=== PATIENT | female | born 1955 | race Caucasian/White ===

== ENCOUNTER 2024-05-18 09:22 | Emergency (ER) | payer MEDICARE, OTHER, SELFPAY ==
[2024-05-18 09:26] VITALS: BP 167/84
[2024-05-18 09:43] VITALS: BMI 35.3
[2024-05-18 10:05] VITALS: BP 128/80
--- NOTE | 2024-05-18 10:05 | EDRN ---
Diana ortiz in room w/pt.
--- NOTE | 2024-05-18 10:10 | EDRN ---
Pt attempting urine spec at this time.
[2024-05-18 10:20] LABS: % Basophils 0.9 % (0-2); % Eosinophils 2.5 % (0-6); % Immature Granulocytes 0.2 % (0-0.5); % Lymphocytes 25.4 % (20.5-51.1); % Monocytes 7.4 % (1.7-9.3); % Neutrophils 63.6 % (42.2-75.2); Absolute Basophils 0.1 10^3/uL (0-0.2); Absolute Eosinophils 0.1 10^3/uL (0-0.7); Absolute Lymphocytes 1.5 10^3/uL (1.2-3.4); Absolute Monocytes 0.4 10^3/uL (0.1-0.6); Absolute Neutrophils 3.6 10^3/uL (1.4-6.5); Hematocrit 40.6 % (37.0-47.0); Hemoglobin 14.4 g/dL (12.0-16.0); Mean Corp Hgb Conc. 35.5 g/dL (33.0-37.0); Mean Corpuscular Hgb 30.1 pg (27.0-31.0); Mean Corpuscular Volume 84.8 fL (81.0-99.0); Nucleated Red Blood Cells % 0 %; Platelet Count 209 10^3/uL (130-400); Red Blood Cell Count 4.79 10^6/uL (4.20-5.40); Red Cell Dist. Width 13.1 % (11.5-14.5); White Blood Cell Count 5.7 10^3/uL (4.8-10.8)
[2024-05-18 10:34] LABS: COVID-19 Antigen Negative (Negative)
[2024-05-18 10:41] LABS: ALT (SGPT) 47 U/L (0-35); AST (SGOT) 27 U/L (14-36); Albumin 4.4 g/dl (3.5-5.0); Alkaline Phosphatase 162 U/L (38-126); Blood Urea Nitrogen 16 mg/dl (7-17); Calcium 10.8 mg/dl (8.4-10.2); Carbon Dioxide 22 mmol/L (22-30); Chloride 100 mmol/L (98-107); Estimated Creatinine Clearance 93 ml/min; Glucose 278 mg/dl (70-99); Lipase 136 U/L (23-300); Potassium 4.4 mmol/L (3.5-5.1); Sodium 136 mmol/L (135-145); Total Bilirubin 1.3 mg/dl (0.2-1.3); eGFR > 60.00
[2024-05-18 10:56] LABS: Urine Albumin Negative (Neg - Trace); Urine Bilirubin Negative (Negative); Urine Character Clear (Clear); Urine Color Yellow; Urine Glucose 3+ (Negative); Urine Ketone 1+ (Negative); Urine Leukocyte 2+ (Negative); Urine Nitrite Positive (Negative); Urine Occult Blood Negative (Negative); Urine Specific Gravity 1.015 (<1.030); Urine Urobilinogen Negative (Neg - 1+)
[2024-05-18 11:15] LABS: Troponin I < 0.012 ng/ml
[2024-05-18 11:18] VITALS: BP 150/85
[2024-05-18 12:00] VITALS: BP 142/73
--- NOTE | 2024-05-18 12:27 | EDRN ---
Diana JENNINGS in room w /pt at this time.
[2024-05-18 12:39] LABS: Urine Squamous Cell 16-20 /LPF (Few)
[2024-05-18 12:40] LABS: Urine Bacteria Moderate (Negative); Urine White Cell 30-40 /HPF (0-5)
--- NOTE | 2024-05-18 12:50 | EDRN ---
Pt OOB to BR at this time
[2024-05-18] MEDS: ROCEPHIN 2000 MG IV (12:57)
[2024-05-18] MEDS: MORPHINE SULFATE 4 MG IV (12:57)
[2024-05-18 13:01] VITALS: BP 131/64
--- NOTE | 2024-05-18 13:09 | EDRN ---
Diana Paris PA in room w/ pt at this time
--- NOTE | 2024-05-18 13:26 | ED.GENMED ---
History of Present Illness
General
Chief Complaint: Abdominal Symptoms
Source: patient
Exam Limitations: none
Time Seen by Provider: 05/18/24 09:36
Nursing documentation reviewed up to this point in time: agreed with
History of Present Illness
History of Present Illness:
68-year-old female with past medical history of previous stroke hypertension hyperlipidemia and diabetes presenting to the emergency department with discomfort initially started to her lower abdomen progressed to her back and also with some
discomfort to her back as well she has had some mild urinary symptoms as well as some generalized weakness and fatigue. Symptoms been ongoing for a few days at this point. She had a COVID test that was normal. Denies any specific chest pain
shortness fevers change in bowel movements.
Past History
Past History
ED Past Medical History: HTN and Hypercholesterolemia
Social History
Tobacco: Non-smoker
Personal:
Living: with family
Review of Systems
Review of Systems
Allergies reviewed?: Yes
All Other Systems: ROS reviewed and negative except as documented in HPI and ROS
Phy Exam
Physical Exam
Physical Exam:
GENERAL: Alert , in no apparent distress
EYE: pupils equal and reactive
NECK: Supple, no significant adenopathy.
ENT: o/p clr, mmm.
CARDIAC: Regular rate and rhythm .
LUNGS: Clear breath sounds bilaterally, no acute respiratory distress, no wheezes/rales/rhonchi
ABDOMEN: Soft, without focal tenderness, no r/g, no cvat
NEUROLOGICAL: Alert and oriented, no focal neuro deficits
SKIN: Warm and dry, skin intact.
MUSCULOSKELETAL: No edema, well perfused.
PSYCH: Normal and appropriate interaction.
Course
Orders/Labs/Results
Orders:
Orders
05/18/24 09:41
IV Insert/Care/Rem.- Treatment PRN
05/18/24 09:55
Troponin I Urgent
05/18/24 10:01
COVID-19 Antigen Urgent
Source: Nasal Swab
Complete Blood Count/With Diff Urgent
Comprehensive Metabolic Panel Urgent
Lipase Urgent
05/18/24 10:05
CT Chest/abd/pelvis Angio W/wo Urgent
Comment:
Reason For Exam: chest back lower abd pain
05/18/24 10:09
EKG [Electrocardiogram (*1)] Urgent
Reason for Study: Abdominal Pain
EKG- Treatment ONCE
05/18/24 10:22
Urinalysis Reflex To Culture Urgent
Date Specimen was Collected: 05/18/24
Time Specimen was Collected: 10:18
Urine Microscopic Reflex Cult Urgent
Urine Culture Urgent
SHRUTHI Source: U
Specimen Description:
Date Specimen was Collected: 05/18/24
Time Specimen was Collected: 10:18
05/18/24 12:31
CefTRIAXone [Rocephin] 2,000 mg IV NOW STA
05/18/24 12:35
Morphine Sulfate 4 mg IV NOW STA
Abnormal Lab Results
05/18/24 05/18/24
10:01 10:22
MPV 12.0 H fL
(7.4-10.4)
Glucose 278 H mg/dl
(70-99)
Calcium 10.8 H mg/dl
(8.4-10.2)
ALT 47 H U/L
(0-35)
Alkaline Phosphatase 162 H U/L
(38-126)
Urine Ketones 1+ A
(Negative)
Urine Nitrite (Reflex) Positive A
(Negative)
Leukocyte Esterase Rfl 2+ A
(Negative)
Urine RBC 7-10 A /HPF
(0-2)
Urine WBC (Reflex) 30-40 A /HPF
(0-5)
Urine Bacteria (Reflex) Moderate A
(Negative)
Urine Glucose 3+ A
(Negative)
05/18/24 10:01
05/18/24 10:01
Vital Signs
Initial and Last Documented VS:
Initial Vital Signs
Temp Pulse Resp BP Pulse Ox
97.7 F 78 16 167/84 100
05/18/24 09:26 05/18/24 09:26 05/18/24 09:26 05/18/24 09:26 05/18/24 09:26
Last Documented Vital Signs
Temp Pulse Resp BP Pulse Ox
97.7 F 69 15 131/64 100
05/18/24 09:26 05/18/24 13:01 05/18/24 13:01 05/18/24 13:01 05/18/24 13:01
MDM/Problems Addressed
MDM/Problems Addressed:
68-year-old female presenting to the emergency department today with concerns of discomfort to the lower abdomen and flank has had some intermittent discomforts over the past few days but at this point mainly is abdominal and back pain. Has had
some mild urinary symptoms also some generalized weakness fatigue. Upon arrival blood pressure was elevated but this improved without specific treatment. Labs were obtained without significant white count did have an elevated glucose level does
have a history of insulin-dependent diabetes urinalysis appears consistent with urinary tract infection. CT scan showing findings consistent with urinary tract infection. Additionally did show findings of stones in the kidney with some signs of
inflammation. The case was discussed with urology due to this finding that felt it was still safe for outpatient manage if otherwise patient appeared well and was nontoxic. She was darted on IV antibiotics and was asymptomatic at time of
discharge. She was written for further antibiotics for 10 days and given strict return precautions.
*Critical Care Note
Total Time (30-74mins, 75-104mins- exclusive of procedures): Not Applicable
ED Attending Note
-
Portions of this chart may have been created with voice recognition software.� Occasional wrong word or��sound alike� substitutions may have occurred due to the inherent limitations of voice recognition software.
Discharge Plan
Departure
Patient Disposition: Home (Routine Discharge)
Date of Disposition: 05/18/24
Time of Disposition: 13:26
Patient with high blood pressure during this ER visit?: No
Condition: Good
Covid-19: Not Applicable
Discharge Problem:
Urinary tract infection, Hyperglycemia
Instructions: Urinary Tract Infection, Adult ED
Prescriptions:
New
cefdinir 300 mg capsule
300 mg PO BID 10 Days Qty: 20 0RF
oxycodone 5 mg capsule
5 mg PO Q6H PRN (Reason: Pain) Qty: 5 0RF
No Action
losartan 50 MG tablet
50 mg PO HS
aspirin 81 MG tablet,delayed release (DR/EC)
81 mg PO DAILY
lidocaine 1 PATCH adhesive patch,medicated
1 patch topical DAILYPRN PRN (Reason: to thighs or shins neuropathy)
ergocalciferol (vitamin D2) 50,000 UNITS capsule
50,000 units PO MO
alpha lipoic acid 100 MG capsule
100 mg PO DAILY
levomefolate--vitamins B12-B6 1 TAB tablet
1 tab PO DAILY
Patient Comments:
11/24/21 will bring in to verify
atorvastatin 40 MG tablet
40 mg PO QPM 30 Days Qty: 30 0RF
clopidogrel 75 MG tablet
75 mg PO DAILY 30 Days Qty: 30 2RF
insulin aspart U-100 [Novolog FlexPen U-100 Insulin] 300 UNITS/3 ML insulin pen
6 units SC AC 30 Days Qty: 1 0RF
insulin glargine [Lantus Solostar U-100 Insulin] 300 UNITS/3 ML insulin pen
16 units SC HS 30 Days Qty: 1 3RF
Referrals:
Nate Baca DO [Family Provider] -
Allen Acevedo MD [Active] - Follow up in 5-7 days
Activity Restrictions/Additional Instructions:
You came to the emergency department today with concerns of discomfort to the abdomen and back. Here you were found to have a urinary tract infection and possible pyelonephritis. You were started on ceftriaxone. Please take cefdinir twice daily
over the next 10 days. Please follow-up closely as an outpatient. Return to the emergency department for any worsening, new or concerning symptoms. Additionally it is very important to control your sugar tightly at home.
Interventions
Interventions:
*Risk Screen - Suicide Last Done: 05/18/24 09:43
*General Assessment Last Done: 05/18/24 09:43
*Neglect/Abuse Screening Last Done: 05/18/24 09:43
ED- Fall Risk Assessment Last Done: 05/18/24 09:43
*ED COVID-19 Vaccine History Last Done: 05/18/24 09:43
*Nursing Disposition Last Done: 05/18/24 13:40
AX-Rqjjjn-Ctyuilbugv Assessment Last Done: 05/18/24 10:10
Discharge Date and Time
Discharge Date/Time: 05/18/24 13:42
Print Language: SINHALA
== END 2024-05-18 13:42 | disposition home or self-care (01) ==
LOC: EMR 09:22
PROVIDERS: Physician Assistant; EMERGENCY PHYSICIAN Emergency Medicine; FAMILY PHYSICIAN Family Medicine
DX: N39.0 Urinary tract infection, site not specified (principal); E11.65 Type 2 diabetes mellitus with hyperglycemia; R53.1 Weakness; N20.0 Calculus of kidney; M54.2 Cervicalgia; M54.9 Dorsalgia, unspecified; E78.00 Pure hypercholesterolemia, unspecified; I10 Essential (primary) hypertension; Z86.73 Personal history of transient ischemic attack (TIA), and cerebral infarction without residual deficits
CPT/HCPCS: 99285; 96374; 96375; 71275; 74174; 80053; 81003; 81015; 83690; 84484; 85025; 87077; 87086; 87186; 87811; 93005; Q9967

== ENCOUNTER 2024-05-19 16:29 | Emergency (ER) | payer MEDICARE, OTHER, SELFPAY ==
[2024-05-19 16:34] VITALS: BP 135/74
[2024-05-19 17:09] LABS: % Basophils 0.6 % (0-2); % Immature Granulocytes 0.3 % (0-0.5); % Lymphocytes 22.6 % (20.5-51.1); % Monocytes 8.1 % (1.7-9.3); % Neutrophils 65.4 % (42.2-75.2); Absolute Eosinophils 0.2 10^3/uL (0-0.7); Absolute Lymphocytes 1.6 10^3/uL (1.2-3.4); Absolute Monocytes 0.6 10^3/uL (0.1-0.6); Absolute Neutrophils 4.5 10^3/uL (1.4-6.5); Hematocrit 37.3 % (37.0-47.0); Hemoglobin 13.2 g/dL (12.0-16.0); Mean Corp Hgb Conc. 35.4 g/dL (33.0-37.0); Mean Corpuscular Hgb 29.3 pg (27.0-31.0); Mean Corpuscular Volume 82.9 fL (81.0-99.0); Mean Platelet Volume 11.4 fL (7.4-10.4); Nucleated Red Blood Cells % 0 %; Platelet Count 241 10^3/uL (130-400); Red Cell Dist. Width 13.3 % (11.5-14.5); White Blood Cell Count 6.9 10^3/uL (4.8-10.8)
[2024-05-19 17:21] LABS: ALT (SGPT) 40 U/L (0-35); AST (SGOT) 31 U/L (14-36); Albumin 4.2 g/dl (3.5-5.0); Alkaline Phosphatase 129 U/L (38-126); Blood Urea Nitrogen 18 mg/dl (7-17); Calcium 9.8 mg/dl (8.4-10.2); Carbon Dioxide 20 mmol/L (22-30); Chloride 102 mmol/L (98-107); Glucose 169 mg/dl (70-99); Potassium 4.1 mmol/L (3.5-5.1); Sodium 138 mmol/L (135-145); eGFR > 60.00
[2024-05-19 17:24] LABS: Urine Albumin Trace (Neg - Trace); Urine Bilirubin Negative (Negative); Urine Character Clear (Clear); Urine Color Yellow; Urine Glucose Negative (Negative); Urine Ketone 2+ (Negative); Urine Leukocyte 2+ (Negative); Urine Nitrite Negative (Negative); Urine Occult Blood Trace (Negative); Urine Specific Gravity 1.025 (<1.030); Urine Urobilinogen Negative (Neg - 1+)
[2024-05-19 17:32] LABS: Urine Mucus Few
[2024-05-19 17:33] LABS: Urine Bacteria Many (Negative); Urine Red Blood Cell 0-2 /HPF (0-2); Urine White Cell 26-30 /HPF (0-5)
[2024-05-19 18:46] VITALS: BMI 35.1
[2024-05-19 19:00] VITALS: BP 139/86
--- NOTE | 2024-05-19 19:35 | ED.GENMED ---
History of Present Illness
General
Chief Complaint: Urinary Symptoms
Source: patient
Exam Limitations: none
Time Seen by Provider: 05/19/24 18:50
History of Present Illness
History of Present Illness:
This is a 68 year old female that comes in with c/o back pain and urinary tract infection. States that she was here yesterday with abd pain in the lower abd. States that this also went into her back and up to the top of her back States that she
wasn't sleeping. States that this started on Saturday. States that she thought it was COVID and tested at home and they tested her here yesterday and this was negative. States that they did an abd CT scan yesterday. States that she was given
Rocephin and Morphine and she left here a happy camper. States that she was also given oral antibiotics for home and she took one last night. States that she also was told to take Tylenol and Ibuprofen for pin. States that she was given Oxycodone
5mg. States that last night she took Advil and this did not help. States that she took a shower and she has decreased appetite. States that at 3am she took the Oxycodone. Then a few hours later she has nausea and vomiting. This Am she felt a little
better and she put a lidocaine patch on her back. States that she continues with lower back pain and she didn't want to go through another night like last night. Denies any fever, chills, chest pain, SOB, abd pain, diarrhea, headache, dizziness,
urinary burning.
Past History
Past History
ED Past Medical History: CVA (NO residual), HTN, Hypercholesterolemia and IDDM
ED Past Surgical History: , Tonsilectomy and Other (Hernia repair)
Social History
Tobacco: Non-smoker
Alcohol: None
Personal:
Living: with family
Review of Systems
Review of Systems
All Other Systems: ROS reviewed and negative except as documented in HPI and ROS
Constitutional: Reports no symptoms; Denies fever or chills
EENT: Reports no symptoms
Respiratory: Reports no symptoms; Denies cough or trouble breathing
Cardiac: Reports no symptoms; Denies chest pain
ABD/GI: Reports abdominal pain (Lower abd pain), nausea and vomiting; Denies diarrhea
Musculoskeletal: Reports no symptoms
Skin: Reports no symptoms
Neurological: Reports no symptoms; Denies dizzy or headache
Psychiatric: Reports no symptoms
Phy Exam
General Physical Exam
General Presentation: no apparent distress
General age: appears stated age
General Skin: warm and dry
General Habitus: elderly
General Mental: alert
General Hydration: appears well hydrated
ENT Exam
ENT Exam: TM's normal, pharynx normal and neck supple
Eye Exam
Eye Exam: EOMI
Cardiovascular Exam
Cardiovascular Exam: regular rate/rhythm, no edema, no murmur and normal peripheral pulses
Pulmonary Exam
Pulmonary Exam: lungs clear, no respiratory distress, no rales, chest non tender, no crackles, no rhonchi, no wheezing and no cough
Gastrointestinal Exam
Gastrointestinal Exam: normal bowel sounds, soft, no organomegaly, no pulsatile mass, non distended and tender (Slight lower abd tenderness over bladder with palpation)
Musculoskeletal Exam
Musculoskeletal Exam: full ROM, no edema and other (Negative for any spinal tenderness or lateral tenderness to the spine with palpation)
Skin Exam
Skin Exam: normal color, warm/dry, no rash and no petechia
Psychiatric Exam
Psychiatric Exam: normal mood/affect
Course
Orders/Labs/Results
Orders:
Orders
05/19/24 16:58
Complete Blood Count/With Diff Urgent
Comprehensive Metabolic Panel Urgent
Urinalysis Reflex To Culture Urgent
Date Specimen was Collected: 05/19/24
Time Specimen was Collected: 16:39
Urine Microscopic Reflex Cult Urgent
Urine Culture Urgent
SHRUTHI Source: U
Specimen Description:
Date Specimen was Collected: 05/19/24
Time Specimen was Collected: 16:39
05/19/24 19:34
0.9% Sodium Chloride 1000 ml [Nss] 1,000 ml IV BOLUS
Ketorolac [Toradol] 30 mg IV NOW STA
Phenazopyridine HCl [Pyridium] 200 mg PO NOW STA
05/19/24 19:48
Acetaminophen [Tylenol] 1,000 mg PO NOW STA
Abnormal Lab Results
05/19/24
16:58
MPV 11.4 H fL
(7.4-10.4)
Carbon Dioxide 20 L mmol/L
(22-30)
BUN 18 H mg/dl
(7-17)
Glucose 169 H mg/dl
(70-99)
ALT 40 H U/L
(0-35)
Alkaline Phosphatase 129 H U/L
(38-126)
Urine Ketones 2+ A
(Negative)
Ur Occult Blood Reflex Trace A
(Negative)
Leukocyte Esterase Rfl 2+ A
(Negative)
Urine WBC (Reflex) 26-30 A /HPF
(0-5)
Urine Bacteria (Reflex) Many A
(Negative)
05/19/24 16:58
05/19/24 16:58
Very slight Dehydration. Glucose nonfasting. ALT mildly elevated. Alk phos slightly elevated. Urine positive for infection.
Vital Signs
Initial and Last Documented VS:
Initial Vital Signs
Temp Pulse Resp BP Pulse Ox
98 F 75 20 135/74 100
05/19/24 16:34 05/19/24 16:34 05/19/24 16:34 05/19/24 16:34 05/19/24 16:34
Last Documented Vital Signs
Temp Pulse Resp BP Pulse Ox
98 F 66 15 152/81 100
05/19/24 16:34 05/19/24 20:15 05/19/24 20:15 05/19/24 20:00 05/19/24 20:15
MDM/Problems Addressed
Differential Diagnosis Includes:
Pyelonephritis. UTI, Low back pain
MDM/Problems Addressed:
This is a 68 year old female that comes in with c/o low back pain and slight abd pain. Patient was seen her yesterday and diagnosed with a UTI. Patient was given IV Rocephen 2000mg and sent home on Cefdinir 300mg BID. Patient was also told to use
Advil and Tylenol and was given Oxycodone for more sever pain. Patient returns tonight with low back pain.
Will check labs. Urine and give IV fluids and medicate for pain.
Back into see patient. Patient states that she is feeling better and ready to go home. Explained to patient that she has a normal WBC count and that she does have a UTI. HEr low back pain may have been from Spasming. She was given Pyridium here and
will also give her a prescription for home. Patient can use Tylenol 1000mg as needed for pain. Follow up with the family doctor. Increase her water intake. Return with any concerns.
Chronic conditions affecting care: DM
Acute Exacerbation and/or Progression of Chronic Illness:
UTI
*Pulse Oximetry
Patient hypoxic: no
*EKG
Interpreted by ED Provider?: NA
Rate: EKG- N/A
*Truck Dock Material Mover Interpretation
Rate: normal
Heart Rate: 71
*Critical Care Note
Total Time (30-74mins, 75-104mins- exclusive of procedures): Not Applicable
ED Attending Note
-
Portions of this chart may have been created with voice recognition software.� Occasional wrong word or��sound alike� substitutions may have occurred due to the inherent limitations of voice recognition software.
Discharge Plan
Departure
Patient Disposition: Home (Routine Discharge)
Date of Disposition: 05/19/24
Time of Disposition: 21:17
Patient with high blood pressure during this ER visit?: Yes
Condition: Good
Covid-19: Not Applicable
Discharge Problem:
Acute UTI (urinary tract infection), Low back pain
Instructions: Low Back Pain (DC), Urinary Tract Infection, Adult (DC), BLOOD PRESSURE
Prescriptions:
New
phenazopyridine [Pyridium] 100 mg tablet
100 mg PO TID PRN (Reason: Urinary issues) Qty: 3 0RF
No Action
losartan 50 MG tablet
50 mg PO HS
aspirin 81 MG tablet,delayed release (DR/EC)
81 mg PO DAILY
lidocaine 1 PATCH adhesive patch,medicated
1 patch topical DAILYPRN PRN (Reason: to thighs or shins neuropathy)
ergocalciferol (vitamin D2) 50,000 UNITS capsule
50,000 units PO MO
alpha lipoic acid 100 MG capsule
100 mg PO DAILY
levomefolate--vitamins B12-B6 1 TAB tablet
1 tab PO DAILY
Patient Comments:
11/24/21 will bring in to verify
atorvastatin 40 MG tablet
40 mg PO QPM 30 Days Qty: 30 0RF
clopidogrel 75 MG tablet
75 mg PO DAILY 30 Days Qty: 30 2RF
insulin aspart U-100 [Novolog FlexPen U-100 Insulin] 300 UNITS/3 ML insulin pen
6 units SC AC 30 Days Qty: 1 0RF
insulin glargine [Lantus Solostar U-100 Insulin] 300 UNITS/3 ML insulin pen
16 units SC HS 30 Days Qty: 1 3RF
cefdinir 300 mg capsule
300 mg PO BID 10 Days Qty: 20 0RF
oxycodone 5 mg capsule
5 mg PO Q6H PRN (Reason: Pain) Qty: 5 0RF
Referrals:
Nate Baca DO [Family Provider] - Follow up in 2-3 days
Activity Restrictions/Additional Instructions:
As discussed, your blood work shows slight Dehydration. Please increase your water intake to 8-8oz glasses daily. You urine shows that you have a UTI. Continue with the antibiotics that you have been given. You have had a prescription for Pyridium
sent to your Pharmacy. This will turn your urine orange but will decrease the spasm of the bladder that may be causing your low back pain. You may take Tylenol 1000mg every 6 hours for pain. Follow up with the family doctor for recheck. IF YOU HAVE
FEVER, INCREASED OR CHANGING PAIN, OR YOU HAVE ANY OTHER CONCERNS PLEASE RETURN TO THE EMERGENCY ROOM.
Interventions
Interventions:
*Risk Screen - Suicide Last Done: 05/19/24 16:34
*General Assessment Last Done: 05/19/24 16:34
*Neglect/Abuse Screening Last Done: 05/19/24 16:34
ED- Fall Risk Assessment Last Done: 05/19/24 18:46
ED-Female Genitourinary Assessment Last Done: 05/19/24 18:46
Discharge Date and Time
Print Language: [place]
[2024-05-19] MEDS: NSS 1000 IV (19:48)
[2024-05-19] MEDS: TORADOL 30 MG IV (19:48)
[2024-05-19] MEDS: Pyridium 200 MG PO (19:48)
[2024-05-19 20:00] VITALS: BP 152/81
[2024-05-19 21:27] VITALS: BP 162/81
[2024-05-19 21:35] VITALS: BP 162/81
== END 2024-05-19 21:35 | disposition home or self-care (01) ==
LOC: EMR 16:29
PROVIDERS: Emergency Medicine; EMERGENCY PHYSICIAN Student in an Organized Health Care Education/Training Program; FAMILY PHYSICIAN Family Medicine
DX: N39.0 Urinary tract infection, site not specified (principal); M54.50 Low back pain, unspecified; R11.2 Nausea with vomiting, unspecified; E11.9 Type 2 diabetes mellitus without complications; I10 Essential (primary) hypertension; E78.00 Pure hypercholesterolemia, unspecified; Z86.73 Personal history of transient ischemic attack (TIA), and cerebral infarction without residual deficits
CPT/HCPCS: 99284; 96374; 96361; 80053; 81003; 81015; 85025; 87086

== ENCOUNTER 2024-05-20 17:04 | Inpatient (IN) | payer MEDICARE, OTHER, SELFPAY ==
[2024-05-20] VITALS (10 sets, daily range): BP systolic 136–175; BP diastolic 71–110; BMI 34.3
[2024-05-20 11:44] LABS: Urine Albumin Negative (Neg - Trace); Urine Bilirubin Negative (Negative); Urine Character Clear (Clear); Urine Color Yellow; Urine Glucose Trace (Negative); Urine Ketone 1+ (Negative); Urine Leukocyte 2+ (Negative); Urine Nitrite Positive (Negative); Urine Occult Blood Negative (Negative); Urine Urobilinogen Negative (Neg - 1+)
[2024-05-20 11:58] LABS: Urine Squamous Cell 21-25 /LPF (Few)
[2024-05-20 11:59] LABS: Urine Bacteria Few (Negative); Urine Red Blood Cell 0-2 /HPF (0-2); Urine White Cell 30-40 /HPF (0-5)
--- NOTE | 2024-05-20 12:00 | ED.GENMED ---
History of Present Illness
General
Chief Complaint: Urinary Symptoms
Source: patient
Exam Limitations: none
Time Seen by Provider: 05/20/24 11:42
Nursing documentation reviewed up to this point in time: agreed with
History of Present Illness
History of Present Illness:
68 y/o F with h/o HTN, HLD, IDDM, stroke
here for 3rd visit in 3 days
lower abd pain to back
came in on 05/[address] c/a/p showing cystitis and an infrarenal kidney stone, no hydro, positive urine e coli hancock sensitive
given rocephin and d/c on cefdinir
has been taking cefdinir, but returned eysterday with persistent pain in the lower abd
she tried a dose of oxycodone and it made her vomit so she stopped taking that, but tylenol not helping
she was afebrile, nontoxic and her w/u showed normal wbc
she was given pyridium for suspected bladder spasm pain and d/c alysha
pt returns saying she cannot eat anything because she has noappetite and the pain is keeping her up
she has not had any fever, chlils, vomiting, diarrhea
she has back pain as well
Past History
Past History
ED Past Medical History: CVA (NO residual), HTN, Hypercholesterolemia and IDDM
ED Past Surgical History: , Tonsilectomy and Other (Hernia repair)
Social History
Tobacco: Non-smoker
Alcohol: None
Personal:
Living: with family
Review of Systems
Review of Systems
Allergies reviewed?: Yes
All Other Systems: Not applicable
Phy Exam
Physical Exam
Physical Exam:
GENERAL: Alert , in no apparent distress
EYE: pupils equal and reactive
NECK: Supple
ENT: o/p clr, mmm.
CARDIAC: Regular rate and rhythm .
LUNGS: Clear breath sounds bilaterally, no acute respiratory distress, no wheezes/rales/rhonchi
ABDOMEN: Soft, mild lower abd tenderness, no r/g, no cvat, normal bowel sounds
NEUROLOGICAL: Alert and oriented, no focal neuro deficits
SKIN: Warm and dry, skin intact.
MUSCULOSKELETAL: No edema, well perfused. neg akash's sign
PSYCH: Normal and appropriate interaction.
Course
Orders/Labs/Results
Orders:
Orders
05/20/24 11:17
Urinalysis Reflex To Culture Urgent
Date Specimen was Collected: 05/20/24
Time Specimen was Collected: 11:11
Urine Microscopic Reflex Cult Urgent
Urine Culture Urgent
SHRUTHI Source: U
Specimen Description:
Date Specimen was Collected: 05/20/24
Time Specimen was Collected: 11:11
05/20/24 12:31
0.9% Sodium Chloride 1000 ml [Nss] 1,000 ml IV BOLUS
HYDROmorphone [Dilaudid] 0.5 mg IV NOW STA
Ondansetron Injectable [Zofran] 4 mg IV NOW STA
05/20/24 12:44
CT Abd/pel Without Iv Or Oral Urgent
Comment:
Reason For Exam: lower abd pain, uti, h/o kidney stone
05/20/24 12:45
Complete Blood Count/With Diff Urgent
Comprehensive Metabolic Panel Urgent
Lipase Urgent
05/20/24 15:05
Piperacillin/Tazo 3.375 Gram [Zosyn] 3.375 gram in 50 ml IV NOW
05/20/24 15:18
HYDROmorphone [Dilaudid] 0.5 mg IV NOW STA
Ondansetron Injectable [Zofran] 4 mg IV NOW STA
Abnormal Lab Results
05/20/24 05/20/24
11:17 12:45
MPV 11.4 H fL
(7.4-10.4)
Absolute Monos (auto) 0.7 H 10^3/uL
(0.1-0.6)
Lymphocytes % 18.8 L %
(20.5-51.1)
Monocytes % 9.9 H %
(1.7-9.3)
BUN 21 H mg/dl
(7-17)
Glucose 204 H mg/dl
(70-99)
ALT 36 H U/L
(0-35)
Urine Ketones 1+ A
(Negative)
Urine Nitrite (Reflex) Positive A
(Negative)
Leukocyte Esterase Rfl 2+ A
(Negative)
Urine WBC (Reflex) 30-40 A /HPF
(0-5)
Urine Bacteria (Reflex) Few A
(Negative)
Urine Glucose Trace A
(Negative)
05/20/24 12:45
05/20/24 12:45
Vital Signs
Initial and Last Documented VS:
Initial Vital Signs
Temp Pulse Resp BP Pulse Ox
98.1 F 71 18 174/94 100
05/20/24 11:08 05/20/24 11:08 05/20/24 11:08 05/20/24 11:08 05/20/24 11:08
Last Documented Vital Signs
Temp Pulse Resp BP Pulse Ox
98.1 F 66 19 175/85 100
05/20/24 11:08 05/20/24 14:00 05/20/24 14:00 05/20/24 14:00 05/20/24 11:08
MDM/Problems Addressed
Differential Diagnosis Includes:
pyelo, kidney stone
MDM/Problems Addressed:
ROOM 3 is candi huddleston 68 y/o F with htn, hld, IDDM, cva
3rd visit in 3 days for lower abd pain and back pain, nauesa, dec appetite, occ vomiting
on 05/[address] C/A/P showing infrarenal stone, no hydro and cystitis; possible early pyelo
urine e coli hancock sensitive; given rocephin and d/c on cefdinir
came back yesterday 05/19 for pain lower abd, doesn't tolerate pain meds (oxy made her vomit and tylenol not helping), fatigue, not eating; w/u unremarkable, wbc normal sent home with pyridium
still having sypmtoms o fpain and not eating, feels weak, back pain
i am rescanning to be sure the kidney stone isn' tmoving; and advancing abx to zosyn
wbc and cr normal
*Critical Care Note
Total Time (30-74mins, 75-104mins- exclusive of procedures): Not Applicable
ED Attending Note
-
Portions of this chart may have been created with voice recognition software.� Occasional wrong word or��sound alike� substitutions may have occurred due to the inherent limitations of voice recognition software.
Discharge Plan
Departure
Patient Disposition: Admit
Date of Disposition: 05/20/24
Time of Disposition: 15:19
Admit to: Med/Surg
Presentation/result/management discussed w/ accepting MD/DO: Hospitalist
Condition: Fair
Covid-19: Not Applicable
Discharge Problem:
Pyelonephritis
Prescriptions:
No Action
losartan 50 MG tablet
50 mg PO HS
ergocalciferol (vitamin D2) 50,000 UNITS capsule
50,000 units PO SA
acetaminophen [Tylenol Extra Strength] 500 mg Tablet
1,000 mg PO Q6HPRN PRN (Reason: mild pain)
calcium carbonate [Tums] 200 mg calcium (500 mg) Tablet,Chewable
400 mg PO BIDPRN PRN (Reason: GI issues)
insulin glargine [Basaglar KwikPen U-100 Insulin] 100 unit/mL (3 mL) Insulin Pen
15 unit SC HS
atorvastatin 40 MG tablet
40 mg PO HS
clopidogrel 75 MG tablet
75 mg PO HS
insulin aspart U-100 [Novolog FlexPen U-100 Insulin] 300 UNITS/3 ML insulin pen
8 units SC DAILY
Referrals:
Nate Baca DO [Family Provider] -
Interventions
Interventions:
*Risk Screen - Suicide Last Done: 05/20/24 11:42
*General Assessment Last Done: 05/20/24 11:42
*Neglect/Abuse Screening Last Done: 05/20/24 11:42
ED- Fall Risk Assessment Last Done: 05/20/24 11:44
*ED COVID-19 Vaccine History Last Done: 05/20/24 11:42
ED-Female Genitourinary Assessment Last Done: 05/20/24 11:44
Discharge Date and Time
Print Language: [id number]
[2024-05-20] MEDS: ZOFRAN 4 MG IV ×3 (12:55→21:29)
[2024-05-20] MEDS: NSS 1000 IV ×2 (12:55→20:19)
[2024-05-20] MEDS: DILAUDID 0.5 MG IV ×3 (12:56→21:29)
[2024-05-20 13:23] LABS: % Basophils 0.7 % (0-2); % Eosinophils 1.3 % (0-6); % Immature Granulocytes 0.1 % (0-0.5); % Lymphocytes 18.8 % (20.5-51.1); % Monocytes 9.9 % (1.7-9.3); % Neutrophils 69.2 % (42.2-75.2); Absolute Basophils 0.1 10^3/uL (0-0.2); Absolute Eosinophils 0.1 10^3/uL (0-0.7); Absolute Lymphocytes 1.4 10^3/uL (1.2-3.4); Absolute Monocytes 0.7 10^3/uL (0.1-0.6); Hematocrit 39.2 % (37.0-47.0); Hemoglobin 13.7 g/dL (12.0-16.0); Mean Corp Hgb Conc. 34.9 g/dL (33.0-37.0); Mean Corpuscular Hgb 29.8 pg (27.0-31.0); Mean Corpuscular Volume 85.4 fL (81.0-99.0); Mean Platelet Volume 11.4 fL (7.4-10.4); Nucleated Red Blood Cells % 0 %; Platelet Count 245 10^3/uL (130-400); Red Blood Cell Count 4.59 10^6/uL (4.20-5.40); Red Cell Dist. Width 13.2 % (11.5-14.5); White Blood Cell Count 7.2 10^3/uL (4.8-10.8)
[2024-05-20 13:47] LABS: ALT (SGPT) 36 U/L (0-35); AST (SGOT) 27 U/L (14-36); Albumin 4.2 g/dl (3.5-5.0); Alkaline Phosphatase 121 U/L (38-126); Blood Urea Nitrogen 21 mg/dl (7-17); Calcium 10.2 mg/dl (8.4-10.2); Carbon Dioxide 22 mmol/L (22-30); Chloride 100 mmol/L (98-107); Estimated Creatinine Clearance 64 ml/min; Glucose 204 mg/dl (70-99); Lipase 108 U/L (23-300); Potassium 4.4 mmol/L (3.5-5.1); Sodium 135 mmol/L (135-145); Total Bilirubin 1.2 mg/dl (0.2-1.3); Total Protein 6.7 g/dl (6.3-8.2); eGFR > 60.00
[2024-05-20] MEDS: ZOSYN 50 IV (15:11)
--- NOTE | 2024-05-20 16:54 | HPS.HSE ---
Family Physician
-
Family Physician: Nate Baca
Chief Complaint
-
Nausea vomiting, abdominal and lower back pain.
History of Present Illness
Patient is a 68-year-old female with diabetes who presented to emergency room on 05/18 with complaints of lower abdominal pain, back pain, generalized fatigue and at that time was found to have urinary tract infection. Her subsequent urine culture
showed sensitive E. coli. Imaging with CT scan showed nonobstructive urinary calculi without evidence of hydronephrosis or urologic tract abnormalities other than suggestion of cystitis. Patient was given single dose of ceftriaxone and sent home
with cefdinir. Patient remains with persistent symptoms mostly generalized fatigue nausea and severe lower abdominal and back pain. She visited emergency room on 05/19. At that time her assessment was unremarkable with no indication of worsening
of infection. She was suggested to continue antibiotics at home with addition of Pyridium. Today given persistent symptoms she presented to the emergency room again complaining of persistent nausea, low oral intake, persistent lower back and lower
abdomen pain.
Medical History
Past Medical History
Past Medical History: Reports CVA, HTN and IDDM (With peripheral neuropathy)
Past Surgical History: Reports None
Social History
Tobacco: Non-smoker
Alcohol: None
Drug: None
Personal:
Living: With Family
Family History
Family History: Not pertinent
Allergies / Home Medications
Allergies reflects when Allergies were last updated in [employer]
Home Medications with original date entered in [employer]
Allergy/Medication List:
Allergies
Allergy/AdvReac Type Severity Reaction Status Date / Time
No Known Allergies Allergy Verified 05/20/24 11:07
Home Medications
ergocalciferol (vitamin D2) 1,250 mcg (50,000 unit) capsule 50,000 units PO SA Supplement 11/24/21
losartan 50 mg tablet 50 mg PO HS Heart disease/condition 11/24/21
acetaminophen 500 mg tablet (Tylenol Extra Strength) 1,000 mg PO Q6HPRN PRN mild pain 05/20/24
atorvastatin 40 mg tablet 40 mg PO HS 05/20/24
calcium carbonate (Tums) 400 mg PO BIDPRN PRN GI issues 05/20/24
clopidogrel 75 mg tablet 75 mg PO HS 05/20/24
insulin aspart U-100 100 unit/mL (3 mL) subcutaneous pen (Novolog FlexPen U-100 Insulin aspart) 8 units SC DAILY 05/20/24
insulin glargine 100 unit/mL (3 mL) subcutaneous pen (Basaglar KwikPen U-100 Insulin) 15 unit SC HS 05/20/24
Review of Systems
-
A 12 point ROS was completed and negative except as noted: Yes
Abdomen/GI: Reports No Symptoms
: Reports See HPI
Physical Exam
Vital Signs
Vital Signs
Temp Pulse Resp BP Pulse Ox
98.1 F 63 10 167/94 100
05/20/24 11:08 05/20/24 15:45 05/20/24 15:45 05/20/24 15:00 05/20/24 11:08
Physical Exam
General: Well Developed, Well Nourished and No Apparent Distress
HEENT: NormoCephalic, Moist mucous membranes and Atraumatic
Respiratory: Clear
Cardiac: S1/S2 and Regular Rhythm; No Murmur or Rub
GI: Soft, Non Tender, Non Distended and Normal Bowel Sounds; No Organomegaly
Rectal: Deferred by Provider
Musculoskeletal: No Clubbing, No Cyanosis and No Edema
Skin: No Rash
Neuro: Nonfocal/grossly intact
Laboratory Results
-
05/20/24 12:45
05/20/24 12:45
Laboratory Results
Total Bilirubin 1.2 mg/dl (0.2-1.3) 05/20/24 12:45
AST 27 U/L (14-36) 05/20/24 12:45
ALT 36 U/L (0-35) H 05/20/24 12:45
Alkaline Phosphatase 121 U/L (38-126) 05/20/24 12:45
Lipase 108 U/L (23-300) 05/20/24 12:45
Impression/Plan
-
IMPRESSION:
Complicated UTI.
Persistent dysuria with lower abdominal and back pain.
Nephrolithiasis
Conditions prior to admission
Essential hypertension
IDDM
Dyslipidemia.
Peripheral neuropathy.
Ischemic CVA 2021.
Obesity with BMI of 34
PLAN:
Complicated UTI with persistent dysuria including lower abdominal and back pain.
Afebrile and hemodynamically stable with no evidence of systemic infection
Normal white count
Urine culture from 05/18 with sensitive E. coli.
Repeated CT scan of the abdomen and pelvis today
1. As compared with 2 days prior, there is slight decrease of the gas within the urinary bladder and left renal collecting system. These findings are most likely related to urinary tract infections process as previously described. There is
unchanged bilateral nephrolithiasis, greater burden of calculi on the left. No hydronephrosis.
2. Hepatic fatty infiltration.
3. Diverticulosis without diverticulitis.
At this point main issue is persistent nausea, low oral intake, and persistent lower abdominal pain.
Transition back to IV antibiotics: Status post single dose of Zosyn. Will continue with ceftriaxone as cultures were sensitive.
Continue IV hydration
Continue antiemetics and analgesic regimen with Tylenol and IV hydromorphone for severe pain.
Insulin requiring diabetes.
Patient reports hyperglycemia over the last few days likely secondary to UTI.
Check hemoglobin A1c.
Continue preadmission dose of Lantus/aspart
Basal bolus protocol.
Carbohydrate controlled diet.
History of CVA.
Continue clopidogrel and statin
Essential hypertension
Monitor blood pressure on losartan
Full code
DVT prophylaxis Lovenox
[2024-05-20] MEDS: LOVENOX 40 MG SC (20:17)
[2024-05-20] MEDS: COZAAR 50 MG PO (20:19)
[2024-05-20] MEDS: TYLENOL 1000 MG PO (20:19)
[2024-05-20] MEDS: PLAVIX 75 MG PO (20:19)
[2024-05-20] MEDS: LIPITOR 40 MG PO (20:19)
[2024-05-20] MEDS: ROCEPHIN 1000 MG IV (21:29)
[2024-05-20] MEDS: STERILE WATER FOR INJECTION 10 ML IV (21:29)
[2024-05-20 22:20] LABS: Glucose - Point of Care 194 mg/dl (70-99)
[2024-05-20] MEDS: LANTUS 0.15 UNITS SC (22:20)
[2024-05-21] MEDS: MELATONIN 5 MG PO (00:36)
[2024-05-21] MEDS: DILAUDID 0.5 MG IV ×6 (01:32→23:27)
[2024-05-21] MEDS: NSS 1000 IV ×2 (06:19→16:10)
[2024-05-21 06:37] LABS: % Basophils 1.1 % (0-2); % Eosinophils 1.2 % (0-6); % Immature Granulocytes 0.3 % (0-0.5); % Lymphocytes 18.8 % (20.5-51.1); % Monocytes 6.6 % (1.7-9.3); Absolute Basophils 0.1 10^3/uL (0-0.2); Absolute Eosinophils 0.1 10^3/uL (0-0.7); Absolute Lymphocytes 1.2 10^3/uL (1.2-3.4); Absolute Monocytes 0.4 10^3/uL (0.1-0.6); Absolute Neutrophils 4.7 10^3/uL (1.4-6.5); Hematocrit 37.3 % (37.0-47.0); Hemoglobin 13.1 g/dL (12.0-16.0); Mean Corp Hgb Conc. 35.1 g/dL (33.0-37.0); Mean Corpuscular Hgb 29.9 pg (27.0-31.0); Mean Corpuscular Volume 85.2 fL (81.0-99.0); Mean Platelet Volume 11.6 fL (7.4-10.4); Nucleated Red Blood Cells % 0 %; Platelet Count 242 10^3/uL (130-400); Red Blood Cell Count 4.38 10^6/uL (4.20-5.40); Red Cell Dist. Width 13.2 % (11.5-14.5); White Blood Cell Count 6.6 10^3/uL (4.8-10.8)
[2024-05-21 07:21] LABS: Glucose - Point of Care 192 mg/dl (70-99)
[2024-05-21 07:25] VITALS: BP 149/87
[2024-05-21 07:26] LABS: Blood Urea Nitrogen 17 mg/dl (7-17); Calcium 9.2 mg/dl (8.4-10.2); Carbon Dioxide 20 mmol/L (22-30); Chloride 104 mmol/L (98-107); Estimated Creatinine Clearance 80 ml/min; Glucose 191 mg/dl (70-99); Potassium 4.3 mmol/L (3.5-5.1); Sodium 139 mmol/L (135-145); eGFR > 60.00
[2024-05-21] MEDS: NOVOLOG FLEXPEN 8 UNITS SC (08:27)
[2024-05-21] MEDS: NOVOLOG FLEXPEN-LOW RESISTANCE 1 UNITS SC (08:28)
[2024-05-21 08:54] LABS: Glycohemoglobin (HgbA1c) 12.1 % (4.0-5.6)
[2024-05-21] MEDS: ZOFRAN 4 MG IV ×2 (09:48→17:48)
[2024-05-21 11:38] LABS: Glucose - Point of Care 160 mg/dl (70-99)
[2024-05-21 13:23] LABS: Glucose - Point of Care 132 mg/dl (70-99)
[2024-05-21] MEDS: NOVOLOG FLEXPEN-LOW RESISTANCE SC ×2 (13:24→17:48)
--- NOTE | 2024-05-21 15:13 | W.PN.HOSP.TC ---
Today's Communication/Plan
-
Continue IV antibiotics
Continue IV fluids, antiemetics and current analgesic regiment
Monitor serial blood glucose with adjustment of insulin regimen.
Assessment / Plan
Assessment / Plan
IMPRESSION:
Complicated UTI.
Persistent dysuria with lower abdominal and back pain.
Nephrolithiasis
Conditions prior to admission
Essential hypertension
IDDM
Dyslipidemia.
Peripheral neuropathy.
Ischemic CVA 2021.
Obesity with BMI of 34
PLAN:
Complicated UTI with persistent dysuria including lower abdominal and back pain.
Afebrile and hemodynamically stable with no evidence of systemic infection
Normal white count
Urine culture from 05/18 with sensitive E. coli.
Repeated CT scan of the abdomen and pelvis today
1. As compared with 2 days prior, there is slight decrease of the gas within the urinary bladder and left renal collecting system. These findings are most likely related to urinary tract infections process as previously described. There is
unchanged bilateral nephrolithiasis, greater burden of calculi on the left. No hydronephrosis.
2. Hepatic fatty infiltration.
3. Diverticulosis without diverticulitis.
At this point main issue is persistent nausea, low oral intake, and persistent lower abdominal pain.
Transition back to IV antibiotics: Status post single dose of Zosyn. Will continue with ceftriaxone as cultures were sensitive.
Continue IV hydration
Continue antiemetics and analgesic regimen with Tylenol and IV hydromorphone for severe pain.
Discussed with urology/mina at. Chart including images reviewed. Currently no indication for urologic intervention with recommendation for continuation of antibiotics, hydration and blood glucose control
Insulin requiring diabetes.
Patient reports hyperglycemia over the last few days likely secondary to UTI.
Hemoglobin A1c 12.1
Continue preadmission dose of Lantus/aspart
Basal bolus protocol.
Carbohydrate controlled diet.
History of CVA.
Continue clopidogrel and statin
Essential hypertension
Monitor blood pressure on losartan
Full code
DVT prophylaxis Lovenox
Anticipated Discharge: 24 - 48 hours
Subjective/Interval History
-
Date of Service: May 21, 2024
Objective Data
-
Labs:
Laboratory Results
05/21/24
05:52
WBC 6.6
Hgb 13.1
Hct 37.3
Plt Count 242
Sodium 139
Potassium 4.3
Chloride 104
Carbon Dioxide 20 L
BUN 17
Creatinine 0.8
Glucose 191 H
Calcium 9.2
Vital Signs:
Vital Signs
Temp Pulse Resp BP Pulse Ox
97.7 F 62 16 149/87 100
05/21/24 07:25 05/21/24 07:25 05/21/24 07:25 05/21/24 07:25 05/21/24 08:00
I&O
05/20/24 05/21/24 05/22/24
06:59 06:59 06:59
Intake Total 480 / 480
Balance 480 / 480
Physical Exam
-
General: Well Developed and No Apparent Distress
HEENT: Normocephalic, Atraumatic and Moist Mucous Membranes
Respiratory: Clear to Auscultation
Cardiac: Regular Rhythm and S1/S2; Negative Murmur, Rub or Gallop
GI: Soft, Nontender, Nondistended and Normal Bowel Sounds; Negative Organomegaly
Rectal: Deferred by Provider
Musculoskeletal: No Clubbing, No Cyanosis and No Edema
Skin: Negative Rash
Neuro: Nonfocal/Grossly Intact
[2024-05-21 15:46] VITALS: BP 143/87
[2024-05-21 16:53] LABS: Glucose - Point of Care 120 mg/dl (70-99)
--- NOTE | 2024-05-21 16:54 | CM ---
Patient with Hx IDDM with Dx Complicated UTI. Room air. Receiving IV Abx.
Met with patient who resides with her in a 2 story house with 4 IVAN.
The patient has been independent in ADLs and ambulation.
DME - spc used when out
VN - none
SNF - none
PCP - Nate Baca
Ph[facility]acy - [facility]
No CM d/c needs identified.
Plan home.
[2024-05-21] MEDS: LOVENOX 40 MG SC (17:48)
[2024-05-21 21:29] LABS: Glucose - Point of Care 136 mg/dl (70-99)
[2024-05-21] MEDS: LIPITOR 40 MG PO (21:34)
[2024-05-21] MEDS: PLAVIX 75 MG PO (21:35)
[2024-05-21] MEDS: STERILE WATER FOR INJECTION 10 ML IV (21:36)
[2024-05-21] MEDS: ROCEPHIN 1000 MG IV (21:36)
[2024-05-21] MEDS: COZAAR 50 MG PO (21:43)
[2024-05-21] MEDS: LANTUS 0.15 UNITS SC (21:47)
[2024-05-21 23:51] VITALS: BP 176/91
[2024-05-22 01:34] VITALS: BP 147/79
[2024-05-22] MEDS: NSS 1000 IV ×2 (03:51→13:58)
[2024-05-22] MEDS: DILAUDID 0.5 MG IV ×2 (04:01→08:11)
[2024-05-22 06:49] LABS: Blood Urea Nitrogen 11 mg/dl (7-17); Carbon Dioxide 24 mmol/L (22-30); Chloride 107 mmol/L (98-107); Estimated Creatinine Clearance 91 ml/min; Glucose 136 mg/dl (70-99); Sodium 140 mmol/L (135-145); eGFR > 60.00
[2024-05-22 07:10] VITALS: BP 181/95
[2024-05-22 07:30] LABS: Glucose - Point of Care 126 mg/dl (70-99)
[2024-05-22] MEDS: NOVOLOG FLEXPEN-LOW RESISTANCE SC (08:10)
[2024-05-22] MEDS: NOVOLOG FLEXPEN 8 UNITS SC (08:11)
--- NOTE | 2024-05-22 10:48 | PN.CDI ---
Addendum entered and electronically signed by Baltazar Patterson MD 05/22/24 17:04:
Unable to comment
Original Note:
CDI
- -
CDI:
Physician Documentation Request
Admit Date: 05/20/24 17:04
Dear Doctor Leonardo,
Please review the following and provide your response in the progress notes.
Clinical Indicators:
PN, 05/21
#Monitor serial blood glucose with adjustment of insulin regimen.
#Complicated UTI.
#Persistent dysuria with lower abdominal and back pain.
#IDDM
#Peripheral neuropathy.
#Insulin requiring diabetes.
#Patient reports hyperglycemia over the last few days likely secondary to UTI.
#Hemoglobin A1c 12.1
Based on the above and your clinical assessment, please clarify the relationship, if any, between these conditions:
Yes, Complicated UTI is enhanced by/contributing to/associated with/due to IDDM.
No, Complicated UTI is not enhanced by/contributing to/associated with/due to IDDM but it is due to ___. (Please specify)
Other(please specify)
Use of terms such as suspected, likely, concern for, or probable (associated with a specific diagnosis that is being evaluated, monitored, or treated as if it exists) are acceptable and can be coded in the inpatient setting, when documented at the
time of discharge.
Thank you,
Tania Duran RN BSN CCDS
CDI Specialist
please contact via tiger text
Please use your independent medical judgment in providing your response.
[2024-05-22 11:43] LABS: Glucose - Point of Care 212 mg/dl (70-99)
[2024-05-22] MEDS: NOVOLOG FLEXPEN-LOW RESISTANCE 2 UNITS SC ×2 (12:39→17:17)
[2024-05-22] MEDS: ROXICODONE 5 MG PO (12:39)
[2024-05-22] MEDS: COLACE 100 MG PO (12:39)
[2024-05-22] MEDS: MIRALAX 17 GRAMS PO (12:39)
[2024-05-22 15:06] VITALS: BP 173/82
[2024-05-22] MEDS: DILAUDID 0.25 MG IV ×2 (15:44→21:30)
--- NOTE | 2024-05-22 16:19 | W.PN.HOSP.TC ---
Today's Communication/Plan
-
Continue IV antibiotics for another 24 hours.
Wean off IV hydromorphone with initiation of oxycodone.
Bowel regimen.
Monitor oral intake and blood glucose adjusting insulin.
Assessment / Plan
Assessment / Plan
IMPRESSION:
Complicated UTI.
Persistent dysuria with lower abdominal and back pain.
Nephrolithiasis
Conditions prior to admission
Essential hypertension
IDDM
Dyslipidemia.
Peripheral neuropathy.
Ischemic CVA 2021.
Obesity with BMI of 34
PLAN:
Complicated UTI with persistent dysuria including lower abdominal and back pain.
Afebrile and hemodynamically stable with no evidence of systemic infection
Normal white count
Urine culture from 05/18 with sensitive E. coli.
Repeated CT scan of the abdomen and pelvis today
1. As compared with 2 days prior, there is slight decrease of the gas within the urinary bladder and left renal collecting system. These findings are most likely related to urinary tract infections process as previously described. There is
unchanged bilateral nephrolithiasis, greater burden of calculi on the left. No hydronephrosis.
2. Hepatic fatty infiltration.
3. Diverticulosis without diverticulitis.
Nausea improved with improving oral intake.
Remains with persistent suprapubic and back pain.
Afebrile
Repeat urine culture with no growth
Continue ceftriaxone for another 24 hours with transition to oral antibiotics to complete additional 7-day course as outpatient
Wean off of IV hydromorphone. Start low-dose of oxycodone for pain.
Bowel regimen
Discussed with urology/mina at. Chart including images reviewed. Currently no indication for urologic intervention with recommendation for continuation of antibiotics, hydration and blood glucose control
Insulin requiring diabetes.
Patient reports hyperglycemia over the last few days likely secondary to UTI.
Hemoglobin A1c 12.1
Continue preadmission dose of Lantus/aspart
Basal bolus protocol.
Carbohydrate controlled diet.
History of CVA.
Continue clopidogrel and statin
Essential hypertension
Monitor blood pressure on losartan
Full code
DVT prophylaxis Lovenox
Anticipated Discharge: 24 - 48 hours
Subjective/Interval History
-
Date of Service: May 22, 2024
Objective Data
-
Labs:
Laboratory Results
05/22/24
05:35
Sodium 140
Potassium 4.0
Chloride 107
Carbon Dioxide 24
BUN 11
Creatinine 0.7
Glucose 136 H
Calcium 9.0
Vital Signs:
Vital Signs
Temp Pulse Resp BP Pulse Ox
98 F 65 18 173/82 100
05/22/24 15:06 05/22/24 15:06 05/22/24 15:06 05/22/24 15:06 05/22/24 15:06
I&O
05/21/24 05/22/24 05/23/24
06:59 06:59 06:59
Intake Total 480 / 480 720 / 720
Balance 480 / 480 720 / 720
Physical Exam
-
General: Well Developed and No Apparent Distress
HEENT: Normocephalic, Atraumatic and Moist Mucous Membranes
Respiratory: Clear to Auscultation
Cardiac: Regular Rhythm and S1/S2; Negative Murmur, Rub or Gallop
GI: Soft, Nontender, Nondistended and Normal Bowel Sounds; Negative Organomegaly
Rectal: Deferred by Provider
Musculoskeletal: No Clubbing, No Cyanosis and No Edema
Skin: Negative Rash
Neuro: Nonfocal/Grossly Intact
--- NOTE | 2024-05-22 16:34 | CM ---
CM continues to follow for any changes in d/c plan or needs.
Plan: Discharge to home; No CM discharge needs identified at this time.
[2024-05-22 16:48] LABS: Glucose - Point of Care 200 mg/dl (70-99)
[2024-05-22] MEDS: LOVENOX 40 MG SC (17:17)
[2024-05-22 21:21] LABS: Glucose - Point of Care 213 mg/dl (70-99)
[2024-05-22] MEDS: LANTUS 0.15 UNITS SC (21:31)
[2024-05-22] MEDS: PLAVIX 75 MG PO (21:32)
[2024-05-22] MEDS: LIPITOR 40 MG PO (21:32)
[2024-05-22] MEDS: ROCEPHIN 1000 MG IV (21:33)
[2024-05-22] MEDS: STERILE WATER FOR INJECTION 10 ML IV (21:33)
[2024-05-22] MEDS: COZAAR 50 MG PO (21:38)
[2024-05-22] MEDS: COLACE PO (21:39)
[2024-05-22 23:21] VITALS: BP 149/73
[2024-05-23] MEDS: ROXICODONE 5 MG PO (02:56)
[2024-05-23] MEDS: NSS 1000 IV (03:43)
[2024-05-23 07:30] VITALS: BP 166/85
[2024-05-23 07:41] LABS: Glucose - Point of Care 171 mg/dl (70-99)
--- NOTE | 2024-05-23 08:08 | W.PN.HOSP.TC ---
Today's Communication/Plan
-
Discharge today
Assessment / Plan
Assessment / Plan
IMPRESSION:
Complicated UTI.
Persistent dysuria with lower abdominal and back pain.
Nephrolithiasis
Conditions prior to admission
Essential hypertension
IDDM
Dyslipidemia.
Peripheral neuropathy.
Ischemic CVA 2021.
Obesity with BMI of 34
PLAN:
Complicated UTI with persistent dysuria including lower abdominal and back pain.
Afebrile and hemodynamically stable with no evidence of systemic infection
Normal white count
Urine culture from 05/18 with sensitive E. coli.
Repeated CT scan of the abdomen and pelvis today
1. As compared with 2 days prior, there is slight decrease of the gas within the urinary bladder and left renal collecting system. These findings are most likely related to urinary tract infections process as previously described. There is
unchanged bilateral nephrolithiasis, greater burden of calculi on the left. No hydronephrosis.
2. Hepatic fatty infiltration.
3. Diverticulosis without diverticulitis.
Nausea improved with improving oral intake.
Remains with persistent suprapubic and back pain.
Afebrile
Repeat urine culture with no growth
Resolving on Rocephin, medically stable for discharge�she can continue her cefdinir that she has at home to complete a 10-day course
Bowel regimen
Discussed with urology/mina at. Chart including images reviewed. Currently no indication for urologic intervention with recommendation for continuation of antibiotics, hydration and blood glucose control
Insulin requiring diabetes.
Patient reports hyperglycemia over the last few days likely secondary to UTI.
Hemoglobin A1c 12.1
Continue preadmission dose of Lantus/aspart
Basal bolus protocol.
Carbohydrate controlled diet.
History of CVA.
Continue clopidogrel and statin
Essential hypertension
Monitor blood pressure on losartan
Full code
DVT prophylaxis Lovenox
Physical Exam
General: No acute distress
HEENT: Normocephalic, Atraumatic, EOMI, MMM
Respiratory: Clear to Auscultation bilaterally
Cardiac: Normal S1/S2, Regular Rate and Rhythm
GI: Soft, Nontender, Nondistended, Normal Bowel Sounds
Extremities: No Clubbing, Cyanosis, or Edema
Neuro: Nonfocal/Grossly Intact
Psych: Calm, Cooperative
Derm: No Visible lesions
Anticipated Discharge: Today
Subjective/Interval History
-
Date of Service: May 23, 2024
Flank pain resolved. Feels well. No nausea, no vomiting. No fever.
Objective Data
-
Vital Signs:
Vital Signs
Temp Pulse Resp BP Pulse Ox
98.6 F 79 18 149/73 97
05/22/24 23:21 05/22/24 23:21 05/22/24 23:21 05/22/24 23:21 05/22/24 23:21
I&O
05/22/24 05/23/24 05/24/24
06:59 06:59 06:59
Intake Total 720 / 720 3240 / 3240
Balance 720 / 720 3240 / 3240
[2024-05-23 09:05] VITALS: BP 166/85
[2024-05-23] MEDS: NOVOLOG FLEXPEN-LOW RESISTANCE 1 UNITS SC (09:51)
[2024-05-23] MEDS: NOVOLOG FLEXPEN 8 UNITS SC (09:53)
[2024-05-23] MEDS: COLACE 100 MG PO (09:55)
[2024-05-23] MEDS: MIRALAX 17 GRAMS PO (09:55)
[2024-05-23] MEDS: DRISDOL (VITAMIN D2) 50000 UNITS PO (09:57)
[2024-05-23] MEDS: NSS IV (10:06)
[2024-05-23 11:00] VITALS: BP 153/85
[2024-05-23] MEDS: CEFTIN 500 MG PO (11:21)
--- NOTE | 2024-05-23 13:52 | W.DCSUMMARY ---
Discharge Summary
Discharge Data
Date of Admission: 05/20/24
Date of Discharge: 05/23/24
-
Pending Results: No
Hospital Course
Discharge diagnosis:
Complicated urinary tract infection
Persistent dysuria with lower abdominal and back pain
Nephrolithiasis
Diabetes
Essential hypertension
Peripheral neuropathy
History of stroke
Obesity due to excess calories
CT abdomen and pelvis:
1. As compared with 2 days prior, there is slight decrease of the gas within the urinary bladder and left renal collecting system. These findings are most likely related to urinary tract infections process as previously described. There is
unchanged bilateral nephrolithiasis, greater burden of calculi on the left. No hydronephrosis.
2. Hepatic fatty infiltration.
3. Diverticulosis without diverticulitis.
Hospital course:
68-year-old female with a past medical history of diabetes, hypertension, peripheral neuropathy, stroke, and obesity was admitted for complicated urinary tract infection. Patient was seen in the emergency room on 05/18/2024 and 05/19/24, and
discharged home with cefdinir and Pyridium for acute urinary tract infection. She re-presented to the ER for the 3rd time the next day due to persistent dysuria, abdominal pain, and back pain.
Patient was treated with IV Rocephin. Repeat urine cultures were negative. Her initial urine culture on 05/18/2024 grew out pansensitive E. coli. After several days, her abdominal pain, back pain, and dysuria resolved. She is medically stable for
discharge. She can continue the cefdinir that she has at home to complete a 10-day course. She has been instructed to follow-up with her primary care doctor in 1 week.
Disposition: Home self-care
Discharge planning: Required 37 minutes
Discharge Plan
-
Patient Disposition: Home (Routine Discharge)
Discharge Diagnosis/Procedures: Acute urinary tract infection, constipation
Condition: Good
Diet: Diabetic, Carb Controlled
Activity: As tolerated
Driving Restrictions: As prior to admission
Activity Restrictions/Additional Instructions:
Please finish the antibiotic you have at home, cefdinir twice a day.
Please follow-up with your primary care doctor this week.
Referrals:
Nate Baca DO [Family Provider] - in one week
Prescriptions:
New
oxycodone 5 mg Tablet
5 mg PO Q6HPRN PRN (Reason: moderate pain) Qty: 10 0RF
ondansetron 4 mg tablet,disintegrating
4 mg PO Q6H PRN (Reason: nausea and vomiting) Qty: 10 0RF
cefdinir 300 mg capsule
300 mg PO BID 5 Days Qty: 10 0RF
polyethylene glycol 3350 17 gram/dose powder
17 g PO BID Qty: 510 0RF
Continued
losartan 50 MG tablet
50 mg PO HS
ergocalciferol (vitamin D2) 50,000 UNITS capsule
50,000 units PO SA
acetaminophen [Tylenol Extra Strength] 500 mg Tablet
1,000 mg PO Q6HPRN PRN (Reason: mild pain)
calcium carbonate [Tums] 200 mg calcium (500 mg) Tablet,Chewable
400 mg PO BIDPRN PRN (Reason: GI issues)
insulin glargine [Basaglar KwikPen U-100 Insulin] 100 unit/mL (3 mL) Insulin Pen
15 unit SC HS
atorvastatin 40 MG tablet
40 mg PO HS
clopidogrel 75 MG tablet
75 mg PO HS
insulin aspart U-100 [Novolog FlexPen U-100 Insulin] 300 UNITS/3 ML insulin pen
8 units SC DAILY
Discharge Orders:
Discharge Patient (As Directed); Ordered 05/23/24
Ordered By: Castillo Velazquez
Discharge Date and Time
Discharge Date/Time: 05/23/24 12:56
Print Language: BENINESE
== END 2024-05-23 12:56 | disposition home or self-care (01) | DRG 690 ==
LOC: 4 EAST ACU 17:04
PROVIDERS: Emergency Medicine; Physician Assistant; ADMITTING PHYSICIAN Internal Medicine; ATTENDING PHYSICIAN Family Medicine; EMERGENCY PHYSICIAN Emergency Medicine; FAMILY PHYSICIAN Family Medicine
DX: N39.0 Urinary tract infection, site not specified (principal); N20.0 Calculus of kidney; B96.20 Unspecified Escherichia coli [E. coli] as the cause of diseases classified elsewhere; I10 Essential (primary) hypertension; E78.00 Pure hypercholesterolemia, unspecified; E11.42 Type 2 diabetes mellitus with diabetic polyneuropathy; E11.65 Type 2 diabetes mellitus with hyperglycemia; K59.00 Constipation, unspecified; Z79.02 Long term (current) use of antithrombotics/antiplatelets; Z79.4 Long term (current) use of insulin; Z86.73 Personal history of transient ischemic attack (TIA), and cerebral infarction without residual deficits; E66.09 Other obesity due to excess calories; Z68.34 Body mass index [BMI] 34.0-34.9, adult
CPT/HCPCS: 71275; 74174; 74176; 80048; 80053; 81003; 81015; 82962; 83036; 83690; 84484; 85025; 87077; 87086; 87186; 87811; 93005; 96361; 96365; 96375; 96376; 99284; Q9967

== ENCOUNTER → 2024-11-10 10:15 | Outpatient (REF) | payer MEDICARE, OTHER, SELFPAY | LOC: HWWDC 10:15 | PROVIDERS: ATTENDING PHYSICIAN Family Medicine | DX: Z12.31 Encounter for screening mammogram for malignant neoplasm of breast (principal); R47.01 Aphasia; I69.30 Unspecified sequelae of cerebral infarction; I70.0 Atherosclerosis of aorta; I67.2 Cerebral atherosclerosis; E78.5 Hyperlipidemia, unspecified | CPT/HCPCS: 77063; 77067; 93880 ==